=== PATIENT | male | born 1995 | race Asian ===

== ENCOUNTER 2025-01-16 12:59 | Emergency (ER) | payer OTHER ==
[2025-01-16 15:15] VITALS: PULSE 66; RESP 20; TEMP 98.6; O2SAT 99
[2025-01-17] MEDS ORDERED: IBUPROFEN600 MG PO (00:27)
== END 2025-01-16 15:18 | disposition home or self-care (01) ==
LOC: FSED 13:11
DX: N50.812 Left testicular pain (principal); N50.811 Right testicular pain; F17.210 Nicotine dependence, cigarettes, uncomplicated
CPT/HCPCS: 76870; 81003; 99284